=== PATIENT | male | born 1945 | race African-American/Black ===

== ENCOUNTER 2019-10-03 15:10 | Emergency (ER) | payer OTHER ==
[~2019-10-03] VITALS: Ht 182.9 cm; Wt 99.8 kg
[2019-10-03] MEDS ORDERED: SODIUM CHLORIDE 0.9% 1,000 ML IVB ONE (15:35)
[2019-10-03] MEDS ORDERED: GLUCAGON HYDROCHLORIDE (RDNA) 1 MG VIAL IV ONE (15:45)
[2019-10-03] MEDS ORDERED: ONDANSETRON HCL 4 MG/2 ML VIAL ONE (15:55)
[2019-10-03] MEDS ORDERED: ONDANSETRON HCL 4 MG/2 ML VIAL IV ONE (16:00)
[2019-10-03 16:39] LABS: Basophils # (auto) 0.1 uL; Eosinophils # (auto) 0.1 uL; Eosinophils % (auto) 0.6 % (0.0-7.0); Mean Corpuscular Hemoglobin 26.7 pg (28.0-32.0); Nucleated Red Blood Cells % 0.1 %; White Blood Cell 12.8 10^3/uL (4.4-10.8)
[2019-10-03 16:40] LABS: Basophils % (auto) 0.4 % (0.0-2.0); Hematocrit 41.9 % (41.0-53.0); Hemoglobin 13.4 g/dL (13.5-17.5); Lymphocytes # (auto) 1.2 uL; Lymphocytes % (auto) 9.6 % (10.0-50.0); Mean Corpuscular Hgb Conc. 32.1 g/dL (32.0-36.0); Mean Corpuscular Volume 83.2 fL (80.0-100.0); Monocytes # (auto) 1.2 uL; Monocytes % (auto) 9.2 % (0.0-12.0); Neutrophils # (auto) 10.3 uL; Neutrophils % (auto) 80.2 % (37.0-80.0); Platelet Count (auto) 225 10^3/uL (140-450); Red Blood Cells 5.03 10^6/uL (4.5-5.90)
[2019-10-03 16:41] LABS: Albumin 3.1 g/dL (3.4-5.0); Anion Gap 10 (5-15); BUN/Creatinine Ratio 10.1; Blood Alcohol < 3.0 mg/dL (0-5); Blood Urea Nitrogen 15 mg/dL (7-18); Calcium 8.2 mg/dL (8.5-10.1); Carbon Dioxide 21 mmol/L (21-32); Chloride 107 mmol/L (98-107); GFR African American 60 mL/min; GFR Non-African American 50 mL/min; Glucose 125 mg/dL (74-106); Magnesium 1.9 mg/dL (1.6-2.6); Potassium 3.5 mmol/L (3.5-5.1); Sodium 138 mmol/L (136-145)
[2019-10-03 16:50] LABS: Alanine Aminotransferase 29 U/L (16-61); Alkaline Phosphatase 99 U/L (45-117); Aspartate Aminotransferase 27 U/L (15-37); INR 1.04 (0.9-1.15); Partial Thromboplastin Time 24.8 sec (23.64-32.05); Total Protein 7.1 g/dL (6.4-8.2)
[2019-10-03 18:04] VITALS: BP 128/78
== END 2019-10-03 18:26 | disposition home or self-care (01) ==
LOC: EDBD 15:10 → ER 15:10
DX: R55 Syncope and collapse (principal); T44.8X5A Adverse effect of centrally-acting and adrenergic-neuron-blocking agents, initial encounter; I10 Essential (primary) hypertension; Y92.89 Other specified places as the place of occurrence of the external cause
CPT/HCPCS: 36415; 71045; 80053; 80320; 82962; 83605; 83735; 84484; 85025; 85610; 85730; 93005; 96361; 96374; 96375; 99284; J1610; J2405; J7030